=== PATIENT | female | born 1955 | race Caucasian/White ===

== ENCOUNTER 2016-08-08 14:31 | Observation (INO) | payer OTHER ==
[~2016-08-08] VITALS: Ht 167.6 cm; Wt 66.6 kg
[~2016-08-08 14:31] MED LIST: AMBIEN5 MG PO; BENADRYL25 MG PO; COLACE100 MG PO; DULCOLAX5 MG PO; DUONEB IN; EFFEXOR XR75 MG PO; FERR SULFATE325 MG PO; FLEXERIL PO; FLOVENT HFA44 MCG IN; HOME NEBULIZER; IMITREX50 M1 PO; LEXAPRO20 MG PO; LISINOPRIL20 MG PO; MEDDOSEPAK PO; MELOXICAM7.5 MG PO; ROBITUSSIN AC10 ML OR; TOPAMAX25 MG PO; TOPROL XL PO; TYLENOL 500MG TAB PO; ULTRAM50 M1 PO; VENTOLIN HFA IN; XANAX0.5 MG PO; ZITHROMAX250 MG PO; ZOCOR20 M1
[2016-08-08 15:14] LABS: HEMOGLOBIN 12.7 g/dl (12.0-16.0); IMMATURE GRANULOCYTES 0.5 % (0.0-1.0); MEAN CELL VOLUME 92.7 fL CALC (80.0-100.0); MEAN CORPUSCULAR HGB CONC 33.4 g/L CALC (32.0-36.0); NEUT# 5.87 thou/uL (2.00-7.15); RED BLOOD COUNT 4.1 mill/uL (4.20-5.60); RED CELL DISTRI WIDTH 12.3 % (11.5-15.5)
[2016-08-08 15:17] LABS: URINE BILIRUBIN - DIPSTICK NEGATIVE (NEGATIVE); URINE BLOOD DIPSTICK NEGATIVE (NEGATIVE); URINE CLARITY CLEAR; URINE COLOR YELLOW; URINE GLUCOSE - DIPSTICK NEGATIVE (NEGATIVE); URINE KETONE NEGATIVE (NEGATIVE); URINE LEUK ESTERASE NEGATIVE (NEGATIVE); URINE NITRITE - DIPSTICK NEGATIVE (Negative); URINE PROTEIN - DIPSTICK NEGATIVE (NEG-TRACE); URINE SPECIFIC GRAVITY <=1.005; URINE UROBILINOGEN - DIPSTICK 0.2 E.U./dL (0.2)
[2016-08-08 15:26] LABS: ALBUMIN 4.5 g/dL (3.2-5.0); ALKALINE PHOSPHATASE 92 u/l (38-126); AMYLASE 57 u/l (30-110); ANION GAP 16 (6-22 (CALC)); BILIRUBIN, TOTAL 0.3 mg/dL (0.0-1.4); BUN 12 mg/dL (7-17); BUN/CREATININE RATIO 14 (12-20 (CALC)); CALCIUM 9.4 mg/dL (8.4-10.2); CARBON DIOXIDE 23 mmol/l (22-30); CHLORIDE 102 mmol/l (95-108); CREATININE 0.8 mg/dL (0.5-1.0); GFR > 60 ML/MIN (>=60 (CALC)); GFR FOR AFR.AMER. > 60 ML/MIN (>=60 (CALC)); GLUCOSE 86 mg/dL (65-105); LIPASE 170 u/l (23-300); POTASSIUM 3.3 mmol/l (3.5-5.1); SGOT/AST 31 u/l (14-36); SGPT/ALT 42 u/l (9-52); SODIUM 138 mmol/l (137-146); TOTAL PROTEIN 7.6 g/dL (6.3-8.2)
[2016-08-08] MEDS ORDERED: PROZAC20 MG PO (15:41)
[2016-08-08 18:37] VITALS: BP 111/72
[2016-08-08 20:16] VITALS: BP 101/71
[2016-08-08 23:29] VITALS: BP 112/74
[2016-08-09] VITALS (9 sets, daily range): BP systolic 106–123; BP diastolic 61–78
[2016-08-09 07:32] LABS: HEMATOCRIT 35.4 % (37.0-47.0); HEMOGLOBIN 11.9 g/dl (12.0-16.0); IMMATURE GRANULOCYTES 0.4 % (0.0-1.0); MEAN CELL VOLUME 92.7 fL CALC (80.0-100.0); MEAN CORPUSCULAR HGB 31.2 pG CALC (26.0-32.0); MEAN CORPUSCULAR HGB CONC 33.6 g/L CALC (32.0-36.0); NEUT# 4.35 thou/uL (2.00-7.15); RED BLOOD COUNT 3.82 mill/uL (4.20-5.60); RED CELL DISTRI WIDTH 12.4 % (11.5-15.5)
[2016-08-09 08:25] LABS: ANION GAP 11 (6-22 (CALC)); BUN 11 mg/dL (7-17); BUN/CREATININE RATIO 14 (12-20 (CALC)); CALCIUM 9.1 mg/dL (8.4-10.2); CARBON DIOXIDE 23 mmol/l (22-30); CREATININE 0.8 mg/dL (0.5-1.0); GFR > 60 ML/MIN (>=60 (CALC)); GFR FOR AFR.AMER. > 60 ML/MIN (>=60 (CALC)); GLUCOSE 80 mg/dL (65-105); POTASSIUM 4.1 mmol/l (3.5-5.1); SODIUM 143 mmol/l (137-146)
[2016-08-09 08:26] LABS: CHLORIDE 113 mmol/l (95-108)
[2016-08-09] MEDS ORDERED: PERCOCET 5/325M1 TAB PO (13:38)
== END 2016-08-09 19:45 | disposition home or self-care (01) | DRG 340 ==
LOC: ENPENDDIS → ED 14:31 → ED-I 15:29 → ED 15:39 → MS2 15:40
PROVIDERS: Emergency Medicine; ADMIT Internal Medicine; ATTEND Internal Medicine
PROC: 0DTJ4ZZ Resection of Appendix, Percutaneous Endoscopic Approach (ICD-10-PCS; principal; 2016-08-09)
DX: K35.3 Acute appendicitis with localized peritonitis (principal); I10 Essential (primary) hypertension; E11.9 Type 2 diabetes mellitus without complications; J45.909 Unspecified asthma, uncomplicated; E66.9 Obesity, unspecified; K58.9 Irritable bowel syndrome, unspecified; F41.9 Anxiety disorder, unspecified; N83.209 Unspecified ovarian cyst, unspecified side; M19.90 Unspecified osteoarthritis, unspecified site; F31.9 Bipolar disorder, unspecified
CPT/HCPCS: G0378; Q9967; S0164

== ENCOUNTER 2016-08-20 11:36 | Emergency (ER) | payer OTHER ==
[~2016-08-20] VITALS: Ht 167.6 cm; Wt 68.0 kg
[~2016-08-20 11:36] MED LIST changes: +PERCOCET 5/325M1 TAB PO; +PROZAC20 MG PO
[2016-08-20] MEDS ORDERED: PROZAC10 MG PO (11:49)
[2016-08-20] MEDS ORDERED: LIPITOR20 MG PO (11:50)
[2016-08-20] MEDS ORDERED: TOPAMAX25 MG PO (11:51)
[2016-08-20 12:29] LABS: HEMATOCRIT 37.7 % (37.0-47.0); HEMOGLOBIN 12.9 g/dl (12.0-16.0); IMMATURE GRANULOCYTES 0.7 % (0.0-1.0); MEAN CELL VOLUME 90.4 fL CALC (80.0-100.0); MEAN CORPUSCULAR HGB 30.9 pG CALC (26.0-32.0); MEAN CORPUSCULAR HGB CONC 34.2 g/L CALC (32.0-36.0); NEUT# 4.25 thou/uL (2.00-7.15); RED BLOOD COUNT 4.17 mill/uL (4.20-5.60); RED CELL DISTRI WIDTH 12.5 % (11.5-15.5)
[2016-08-20 13:19] LABS: ALBUMIN 4.1 g/dL (3.2-5.0); ALKALINE PHOSPHATASE 95 u/l (38-126); ANION GAP 14 (6-22 (CALC)); BILIRUBIN, TOTAL 0.3 mg/dL (0.0-1.4); BUN 13 mg/dL (7-17); BUN/CREATININE RATIO 16 (12-20 (CALC)); CALCIUM 9.2 mg/dL (8.4-10.2); CARBON DIOXIDE 26 mmol/l (22-30); CHLORIDE 103 mmol/l (95-108); CREATININE 0.8 mg/dL (0.5-1.0); GFR > 60 ML/MIN (>=60 (CALC)); GFR FOR AFR.AMER. > 60 ML/MIN (>=60 (CALC)); GLUCOSE 71 mg/dL (65-105); POTASSIUM 3.3 mmol/l (3.5-5.1); SGOT/AST 59 u/l (14-36); SGPT/ALT 76 u/l (9-52); SODIUM 140 mmol/l (137-146)
[2016-08-20 14:09] LABS: URINE BILIRUBIN - DIPSTICK NEGATIVE (NEGATIVE); URINE BLOOD DIPSTICK NEGATIVE (NEGATIVE); URINE CLARITY CLEAR; URINE COLOR YELLOW; URINE GLUCOSE - DIPSTICK NEGATIVE (NEGATIVE); URINE KETONE NEGATIVE (NEGATIVE); URINE LEUK ESTERASE NEGATIVE (NEGATIVE); URINE NITRITE - DIPSTICK NEGATIVE (Negative); URINE PROTEIN - DIPSTICK NEGATIVE (NEG-TRACE); URINE SPECIFIC GRAVITY <=1.005; URINE UROBILINOGEN - DIPSTICK 0.2 E.U./dL (0.2)
[2016-08-20] MEDS ORDERED: LORTAB 10-325 M1 TAB PO (16:26)
[2016-08-20] MEDS ORDERED: ZOFRAN ODT4 MG PO (16:26)
[2016-08-20 16:27] VITALS: BP 112/70
== END 2016-08-20 16:35 | disposition home or self-care (01) | DRG 392 ==
LOC: ED 11:36
PROVIDERS: Emergency Medicine
DX: R10.33 Periumbilical pain (principal); R11.2 Nausea with vomiting, unspecified; R10.31 Right lower quadrant pain; N83.201 Unspecified ovarian cyst, right side; Z98.890 Other specified postprocedural states; R19.7 Diarrhea, unspecified
CPT/HCPCS: Q9967

== ENCOUNTER 2017-01-21 07:08 | Day surgery (SDC) | payer OTHER ==
[~2017-01-21] VITALS: Ht 167.6 cm; Wt 67.1 kg
[~2017-01-21 07:08] MED LIST changes: +ALLEGRA180 MG PO; +LIPITOR20 MG PO; +LORTAB 10-325 M1 TAB PO; +MELOXICAM15 MG PO; +METOPROLOL SUC100 MG PO; +NITROSTAT0.3 MG SL; +OMEPRAZOLE20 MG PO; +PROVENTIL HFA IN; +PROZAC10 MG PO; +TOPAMAX100 M1 PO; +WELLBUTRIN SR150 MG PO; +XANAX1 MG PO; +ZANAFLEX4 M2 PO; +ZOFRAN ODT4 MG PO
[2017-01-21 09:36] VITALS: BP 126/77
== END 2017-01-21 09:10 | disposition home or self-care (01) | DRG 392 ==
LOC: ENDO 07:08 → ORM 10:20
PROVIDERS: ATTEND Surgery
PROC: 0DJD8ZZ Inspection of Lower Intestinal Tract, Via Natural or Artificial Opening Endoscopic (ICD-10-PCS; principal; 2017-01-21)
DX: R10.31 Right lower quadrant pain (principal); K64.8 Other hemorrhoids; I10 Essential (primary) hypertension; E11.9 Type 2 diabetes mellitus without complications; F31.9 Bipolar disorder, unspecified; M54.12 Radiculopathy, cervical region; J45.909 Unspecified asthma, uncomplicated; K58.9 Irritable bowel syndrome, unspecified

== ENCOUNTER 2017-08-07 16:35 | Emergency (ER) | payer OTHER ==
[~2017-08-07] VITALS: Ht 167.6 cm; Wt 61.4 kg
[2017-08-07] MEDS ORDERED: WELLBUTRIN SR150 MG PO ×2 (16:59→17:00)
[2017-08-07] MEDS ORDERED: ADDERALL15 MG PO (17:00)
[2017-08-07] MEDS ORDERED: LISINOPRIL5 MG PO (17:02)
[2017-08-07] MEDS ORDERED: ZYRTEC10 MG PO (17:04)
[2017-08-07] MEDS ORDERED: PERCOCET 5/325M1 TAB PO (18:04)
[2017-08-07 18:21] VITALS: BP 169/88
== END 2017-08-07 18:33 | disposition home or self-care (01) | DRG 563 ==
LOC: ED 16:35
PROC: 2W3SX1Z Immobilization of Right Foot using Splint (ICD-10-PCS; principal; 2017-08-07)
DX: S92.511A Displaced fracture of proximal phalanx of right lesser toe(s), initial encounter for closed fracture (principal); W22.03XA Walked into furniture, initial encounter; Y92.009 Unspecified place in unspecified non-institutional (private) residence as the place of occurrence of the external cause

== ENCOUNTER 2017-09-14 11:54 | Emergency (ER) | payer OTHER ==
[~2017-09-14] VITALS: Ht 167.6 cm; Wt 60.0 kg
[~2017-09-14 11:54] MED LIST changes: +ADDERALL15 MG PO; +LISINOPRIL5 MG PO; +ZYRTEC10 MG PO
[2017-09-14] MEDS ORDERED: PROVENTIL108 MCG/AC IN (12:11)
[2017-09-14] MEDS ORDERED: TOPROL XL PO (12:12)
[2017-09-14] MEDS ORDERED: LISINOP/HCTZ1 TAB PO (12:12)
[2017-09-14] MEDS ORDERED: STIOLTO RESPIMA1 AER PO (12:14)
[2017-09-14] MEDS ORDERED: VENLAFAXINE HC150 MG PO (12:14)
[2017-09-14] MEDS ORDERED: SPIRIVA HANDIH18 MCG IN (12:14)
[2017-09-14] MEDS ORDERED: IMITREX100 MG PO (12:17)
[2017-09-14] MEDS ORDERED: TOPIRAMATE100 MG PO (12:18)
[2017-09-14] MEDS ORDERED: TOPAMAX50 MG PO (12:18)
[2017-09-14] MEDS ORDERED: AMPHETAMINE15 M1 PO (12:19)
[2017-09-14] MEDS ORDERED: FAMOTIDINE20 M1 PO (12:19)
[2017-09-14] MEDS ORDERED: TORADOL PO (13:05)
[2017-09-14 13:16] VITALS: BP 122/76
== END 2017-09-14 13:19 | disposition home or self-care (01) ==
LOC: ED 11:54
DX: S30.0XXA Contusion of lower back and pelvis, initial encounter (principal); I10 Essential (primary) hypertension; F32.9 Major depressive disorder, single episode, unspecified; J45.909 Unspecified asthma, uncomplicated; F41.9 Anxiety disorder, unspecified; W19.XXXA Unspecified fall, initial encounter; Y92.009 Unspecified place in unspecified non-institutional (private) residence as the place of occurrence of the external cause

== ENCOUNTER 2018-01-01 06:41 | Emergency (ER) | payer OTHER ==
[~2018-01-01] VITALS: Ht 167.6 cm; Wt 50.0 kg
[~2018-01-01 06:41] MED LIST changes: +AMPHETAMINE15 M1 PO; +FAMOTIDINE20 M1 PO; +IMITREX100 MG PO; +LISINOP/HCTZ1 TAB PO; +PROVENTIL108 MCG/AC IN; +SPIRIVA HANDIH18 MCG IN; +STIOLTO RESPIMA1 AER PO; +TOPAMAX50 MG PO; +TOPIRAMATE100 MG PO; +TORADOL PO; +VENLAFAXINE HC150 MG PO
[2018-01-01] MEDS ORDERED: NAPROSYN500 MG PO (07:50)
[2018-01-01 07:59] VITALS: BP 107/60
== END 2018-01-01 08:18 | disposition home or self-care (01) ==
LOC: ED 06:41
DX: S20.211A Contusion of right front wall of thorax, initial encounter (principal); W01.190A Fall on same level from slipping, tripping and stumbling with subsequent striking against furniture, initial encounter; Y92.009 Unspecified place in unspecified non-institutional (private) residence as the place of occurrence of the external cause

== ENCOUNTER 2018-04-26 17:08 | Emergency (ER) | payer OTHER ==
[~2018-04-26] VITALS: Ht 167.6 cm; Wt 60.9 kg
[~2018-04-26 17:08] MED LIST changes: +NAPROSYN500 MG PO
[2018-04-26 18:40] LABS: HEMATOCRIT 39.1 % (37.0-47.0); IMMATURE GRANULOCYTES 0.6 % (0.0-5.0); MEAN CELL VOLUME 87.3 fL CALC (80.0-100.0); MEAN CORPUSCULAR HGB CONC 33.2 g/L CALC (32.0-36.0); NEUT# 3.77 thou/uL (2.00-7.15); RED BLOOD COUNT 4.48 mill/uL (4.20-5.60); RED CELL DISTRI WIDTH 15.4 % (11.5-15.5)
[2018-04-26 18:54] LABS: ANION GAP 13 (6-22 (CALC)); BUN 18 mg/dL (8-23); BUN/CREATININE RATIO 18 (12-20 (CALC)); CARBON DIOXIDE 22 mmol/l (22-30); CHLORIDE 105 mmol/l (95-108); GFR 56 ML/MIN (>=60 (CALC)); GFR FOR AFR.AMER. > 60 ML/MIN (>=60 (CALC)); POTASSIUM 3.3 mmol/l (3.5-5.1); SODIUM 136 mmol/l (137-146)
[2018-04-26] MEDS ORDERED: PREDNISONE10 MG PO (20:57)
[2018-04-26] MEDS ORDERED: VALTREX1 GM PO (20:57)
[2018-04-26 21:11] VITALS: BP 101/60
== END 2018-04-26 21:11 | disposition home or self-care (01) ==
LOC: ED 17:08
PROVIDERS: Family Medicine
DX: G51.0 Bell's palsy (principal); I10 Essential (primary) hypertension; J45.909 Unspecified asthma, uncomplicated; F41.9 Anxiety disorder, unspecified; F32.9 Major depressive disorder, single episode, unspecified; H92.02 Otalgia, left ear
CPT/HCPCS: Q9967

== ENCOUNTER 2018-10-25 17:05 | Emergency (ER) | payer OTHER ==
[~2018-10-25] VITALS: Ht 167.6 cm; Wt 50.0 kg
[~2018-10-25 17:05] MED LIST changes: +PREDNISONE10 MG PO; +VALTREX1 GM PO
[2018-10-25 17:29] LABS: HEMATOCRIT 35.1 % (37.0-47.0); HEMOGLOBIN 11.2 g/dl (12.0-16.0); IMMATURE GRANULOCYTES 0.5 % (0.0-5.0); MEAN CORPUSCULAR HGB 29.8 pG CALC (26.0-32.0); MEAN CORPUSCULAR HGB CONC 31.9 g/L CALC (32.0-36.0); NEUT# 7.75 thou/uL (2.00-7.15); RED BLOOD COUNT 3.76 mill/uL (4.20-5.60); RED CELL DISTRI WIDTH 13.3 % (11.5-15.5)
[2018-10-25 17:30] LABS: MEAN CELL VOLUME 93.4 fL CALC (80.0-100.0)
[2018-10-25 17:44] LABS: ANION GAP 14 (6-22 (CALC)); BUN 20 mg/dL (8-23); BUN/CREATININE RATIO 18 (12-20 (CALC)); CARBON DIOXIDE 21 mmol/l (22-30); CHLORIDE 105 mmol/l (95-108); CREATININE 1.1 mg/dL (0.5-1.0); GFR 50 ML/MIN (>=60 (CALC)); GFR FOR AFR.AMER. > 60 ML/MIN (>=60 (CALC)); POTASSIUM 3.7 mmol/l (3.5-5.1); SODIUM 136 mmol/l (137-146)
[2018-10-25] MEDS ORDERED: ONDANSETRON4 MG PO (18:42)
[2018-10-25] MEDS ORDERED: NORCO1 TA1 PO (18:42)
[2018-10-25] MEDS ORDERED: EFFEXOR37.5 MG PO (19:38)
[2018-10-25] MEDS ORDERED: PROZAC20 MG PO (19:38)
[2018-10-25] MEDS ORDERED: LIPITOR40 M1 PO (19:39)
[2018-10-25] MEDS ORDERED: LISINOPRIL5 MG PO (19:39)
[2018-10-25] MEDS ORDERED: FLONASE AL50 MCG/ACT (19:41)
[2018-10-25 22:19] VITALS: BP 101/59
== END 2018-10-25 22:40 | disposition home or self-care (01) ==
LOC: ED 17:05
PROVIDERS: Family Medicine
DX: S82.022A Displaced longitudinal fracture of left patella, initial encounter for closed fracture (principal); I95.2 Hypotension due to drugs; T46.5X5A Adverse effect of other antihypertensive drugs, initial encounter; I10 Essential (primary) hypertension; W01.0XXA Fall on same level from slipping, tripping and stumbling without subsequent striking against object, initial encounter; Y92.009 Unspecified place in unspecified non-institutional (private) residence as the place of occurrence of the external cause

== ENCOUNTER 2019-02-05 14:45 | Emergency (ER) | payer OTHER ==
[~2019-02-05] VITALS: Ht 167.6 cm; Wt 59.5 kg
[~2019-02-05 14:45] MED LIST changes: +EFFEXOR37.5 MG PO; +FLONASE AL50 MCG/ACT; +LIPITOR40 M1 PO; +NORCO1 TA1 PO; +ONDANSETRON4 MG PO
[2019-02-05 15:51] LABS: HEMATOCRIT 36.8 % (37.0-47.0); HEMOGLOBIN 12.2 g/dl (12.0-16.0); IMMATURE GRANULOCYTES 0.3 % (0.0-5.0); MEAN CELL VOLUME 89.3 fL CALC (80.0-100.0); MEAN CORPUSCULAR HGB 29.6 pG CALC (26.0-32.0); MEAN CORPUSCULAR HGB CONC 33.2 g/L CALC (32.0-36.0); NEUT# 6.6 thou/uL (2.00-7.15); RED BLOOD COUNT 4.12 mill/uL (4.20-5.60)
[2019-02-05 16:04] LABS: ALBUMIN 4.1 g/dL (3.2-5.0); BILIRUBIN, TOTAL 0.2 mg/dL (0.0-1.4); CREATININE 1.9 mg/dL (0.5-1.0); TOTAL PROTEIN 7.1 g/dL (6.3-8.2)
[2019-02-05 16:05] LABS: POTASSIUM 2.7 mmol/l (3.5-5.1)
[2019-02-05] MEDS ORDERED: K-DUR/KLOR-CON20 MEQ PO (17:46)
[2019-02-05] MEDS ORDERED: ULTRAM50 MG PO (17:46)
[2019-02-05 18:30] VITALS: BP 108/60
== END 2019-02-05 18:30 | disposition home or self-care (01) ==
LOC: ED 14:45
DX: S01.81XA Laceration without foreign body of other part of head, initial encounter (principal); W01.119A Fall on same level from slipping, tripping and stumbling with subsequent striking against unspecified sharp object, initial encounter; Z91.81 History of falling; Y92.019 Unspecified place in single-family (private) house as the place of occurrence of the external cause; S16.1XXA Strain of muscle, fascia and tendon at neck level, initial encounter; E87.6 Hypokalemia; S82.092A Other fracture of left patella, initial encounter for closed fracture
CPT/HCPCS: L1830

== ENCOUNTER 2020-01-12 10:56 | Emergency (ER) | payer OTHER ==
[~2020-01-12] VITALS: Ht 167.6 cm; Wt 70.0 kg
[~2020-01-12 10:56] MED LIST changes: +K-DUR/KLOR-CON20 MEQ PO; +ULTRAM50 MG PO
[2020-01-12] MEDS ORDERED: PROZAC20 MG PO (11:20)
[2020-01-12] MEDS ORDERED: XANAX1 MG PO (11:25)
[2020-01-12 13:40] VITALS: BP 152/83
[2020-01-12] MEDS ORDERED: HYDROCO/APAP1 TA9 PO (15:51)
== END 2020-01-12 13:45 | disposition home or self-care (01) ==
LOC: ED 10:56
DX: S92.321A Displaced fracture of second metatarsal bone, right foot, initial encounter for closed fracture (principal); R07.81 Pleurodynia; I10 Essential (primary) hypertension; F41.9 Anxiety disorder, unspecified; F32.9 Major depressive disorder, single episode, unspecified; J45.909 Unspecified asthma, uncomplicated; W01.0XXA Fall on same level from slipping, tripping and stumbling without subsequent striking against object, initial encounter; Y93.89 Activity, other specified; Y92.009 Unspecified place in unspecified non-institutional (private) residence as the place of occurrence of the external cause

== ENCOUNTER 2020-03-13 18:07 | Emergency (ER) | payer OTHER ==
[~2020-03-13] VITALS: Ht 167.6 cm; Wt 80.0 kg
[~2020-03-13 18:07] MED LIST changes: +HYDROCO/APAP1 TA9 PO
[2020-03-13 20:34] VITALS: BP 145/85
== END 2020-03-13 20:35 | disposition home or self-care (01) ==
LOC: ED 18:07
DX: S20.219A Contusion of unspecified front wall of thorax, initial encounter (principal); S29.011A Strain of muscle and tendon of front wall of thorax, initial encounter; I10 Essential (primary) hypertension; J45.909 Unspecified asthma, uncomplicated; F41.9 Anxiety disorder, unspecified; F32.9 Major depressive disorder, single episode, unspecified; W22.8XXA Striking against or struck by other objects, initial encounter

== ENCOUNTER 2021-04-21 15:36 | Observation (INO) | payer OTHER ==
[~2021-04-21] VITALS: Ht 167.6 cm; Wt 70.0 kg
[~2021-04-21 15:36] MED LIST changes: +LIPITOR20 M1 PO; -LIPITOR40 M1 PO
--- NOTE | 2021-04-21 15:44 | NUR ---
PATIENT TO ROOM 15 VIA WHEELCHAIR
[2021-04-21 16:24] LABS: IMMATURE GRANULOCYTES 0.1 % (0.0-5.0); MEAN CORPUSCULAR HGB 17.8 pG CALC (26.0-32.0); MEAN CORPUSCULAR HGB CONC 26.5 g/dL CAL (32.0-36.0); NEUT# 4.93 thou/uL (2.00-7.15); RED BLOOD COUNT 3.82 mill/uL (4.20-5.60); RED CELL DISTRI WIDTH 20.1 % (11.5-15.5)
[2021-04-21 16:34] LABS: HEMATOCRIT 25.7 % (37.0-47.0); HEMOGLOBIN 6.8 g/dl (12.0-16.0); MEAN CELL VOLUME 67.3 fL CALC (80.0-100.0)
[2021-04-21 16:52] LABS: ALKALINE PHOSPHATASE 80 u/l (38-126); BILIRUBIN, TOTAL 0.2 mg/dL (0.0-1.4); BUN 16 mg/dL (8-23); BUN/CREATININE RATIO 15 (12-20 (CALC)); CHLORIDE 109 mmol/l (95-108); GFR 56 ML/MIN (>=60 (CALC)); GFR FOR AFR.AMER. > 60 ML/MIN (>=60 (CALC)); SGOT/AST 26 u/l (9-36); SODIUM 138 mmol/l (137-146); TOTAL PROTEIN 7.5 g/dL (6.3-8.2)
[2021-04-21 16:53] LABS: LIPASE 128 u/l (23-300)
[2021-04-21 16:56] LABS: ANION GAP 16 (6-22 (CALC)); CARBON DIOXIDE 17 mmol/l (22-30); POTASSIUM 3.8 mmol/l (3.5-5.1)
[2021-04-21 17:06] LABS: ACT PARTIAL THROMBO TIME 22.1 SECONDS (20.0-32.5)
--- NOTE | 2021-04-21 18:49 | NUR ---
Reassessment of patient completed. No distress noted.
--- NOTE | 2021-04-21 19:15 | NUR ---
TRANSITION OF CARE REPORT TO MAKSIM VILLALOBOS
[2021-04-21 19:40] VITALS: BP 122/78
[2021-04-21 19:58] VITALS: BP 124/82
--- NOTE | 2021-04-21 20:16 | NUR ---
REPORT CALLED TO BRAINNA ON MED SURG
--- NOTE | 2021-04-21 20:24 | NUR ---
RECIEVED REPORT FROM GRISELDA SCHAEFFER
--- NOTE | 2021-04-21 20:29 | NUR ---
PATIENT TRANSPORTED OFF UNIT VIA STRETCHER TO ADMIT.
[2021-04-21 20:30] VITALS: BP 161/90
--- NOTE | 2021-04-21 20:31 | NUR ---
PT ARRIVED TO [facility] ROOM 273 VIA STRETCHER. PT IS A/OX3. ASSESSMENT AND VITALS COMPLETED. BP 161/90, HR 80. REPSIRATIONS EVEN AND UNLABORED. LUNG SOUNDS ARE CLEAR. HEART RHYTHM NORMAL WITH TELE IN PLACE ([id number]). BOWEL SOUNDS ACTIVE, LBM 04/21/21. PULSES STRONG. SKIN INTACT. PT DENIES OF ANY PAINS. FIRST UNIT OF BLOOD TRANSFUSIONING AT THIS TIME. PT EDUCATED ON S/S OF TRANSFUSION REACTIONS. PT ORIENTED TO ROOM AND CALL SYSTEM. NKDA NOTED, ALLERGY BAND AND FALL RISK BAND APPLIED. ALL SAFTE[employer] PRECAUTIONS ARE IN PLACE WITH CALL LIGHT IN REACH. WILL CONTINUE TO MONITOR.
[2021-04-21 20:43] VITALS: BP 161/90
--- NOTE | 2021-04-21 22:12 | NUR ---
FIRST UNIT OF BLOOD COMPLETED. VSS. #22G RAC REMAINS PATENT. PT DENIES OF ANY S/S OF REACTIONS. SECOND UNIT TO BE ADMINISTERED. NEW TUBING STARTED.
[2021-04-21 22:48] VITALS: BP 140/84
--- NOTE | 2021-04-21 23:20 | NUR ---
SECOND UNIT OF BLOOD SPIKED BY GRISELDA MILLER. PT INFORMED OF S/S OF TRANSFUSION REACTION. PT VERBLAIZED UNDERSTANDING. #22R RAC REMAINS PATENT.
[2021-04-21 23:35] VITALS: BP 139/81
--- NOTE | 2021-04-21 23:36 | NUR ---
VITALS COMPLETED. BP 139/81, HR 82, O2 99. RESPIRATIONS REMAINS EVEN AND UNLABORED. TELE EMONITORING IN PLACE. #22G RAC REMAINS PATENT. BLOOD INFUSING WITH EASE. PT DENIES OF ANY S/S OF REACTION. PT RE-EDUACTED. PT DENIES OF ANY NEEDS. ALL SAF[employer] PRECAUTIONS ARE IN PLACE WITH JACQUI LIGHT IN REACH. WILL CONTINUE TO MONITOR
[2021-04-22 00:20] VITALS: BP 132/77
--- NOTE | 2021-04-22 00:36 | NUR ---
BP 132/77, HR 77, O2 98. PT RESTING IN SEMI FOWLERS POSITION. DENIES OF ANY COMPLAINTS
[2021-04-22 02:24] VITALS: BP 146/87
--- NOTE | 2021-04-22 02:24 | NUR ---
SECOND UNIT OF BLOOD COMPLETED. REPSIRATIONS EVEN AND UNLABORED. PT DENIES OF ANY COMPLAINTS. NO S/S OF REACTION. WILL CONTINUE TO MONITOR.
[2021-04-22 04:00] VITALS: BP 145/90
--- NOTE | 2021-04-22 04:14 | NUR ---
PT RESTING IN SEMI FOWLERS POSITION WATCHING TV. RESPIRATIONS ARE EVEN AND UNLABORED WITH NO DISTRESS NOTED. #22G RAC NOTED. TELE MONITORING IN PLACE. PT DENIES OF ANY NEEDS. ALL SAFTEY PRECAUTIONS ARE IN PLACE. WILL CONTINUE TO MONITOR
[2021-04-22 05:53] LABS: ANION GAP 13 (6-22 (CALC)); BUN 14 mg/dL (8-23); BUN/CREATININE RATIO 16 (12-20 (CALC)); CARBON DIOXIDE 17 mmol/l (22-30); CHLORIDE 113 mmol/l (95-108); CREATININE 0.9 mg/dL (0.5-1.0); GFR > 60 ML/MIN (>=60 (CALC)); GFR FOR AFR.AMER. > 60 ML/MIN (>=60 (CALC)); POTASSIUM 4.3 mmol/l (3.5-5.1); SODIUM 140 mmol/l (137-146)
[2021-04-22 05:56] LABS: HEMATOCRIT 31.3 % (37.0-47.0); MEAN CORPUSCULAR HGB 20.4 pG CALC (26.0-32.0); MEAN CORPUSCULAR HGB CONC 28.4 g/dL CAL (32.0-36.0); RED BLOOD COUNT 4.37 mill/uL (4.20-5.60)
[2021-04-22 06:04] LABS: HEMOGLOBIN 8.9 g/dl (12.0-16.0); MEAN CELL VOLUME 71.6 fL CALC (80.0-100.0)
[2021-04-22] MEDS ORDERED: BENZONATATE200 MG PO (07:15)
[2021-04-22] MEDS ORDERED: VENLAFAXINE HY225 MG PO (07:16)
[2021-04-22] MEDS ORDERED: TOPIRAMATE100 MG PO (07:16)
[2021-04-22] MEDS ORDERED: ADDERALL XR30 MG PO (07:16)
[2021-04-22] MEDS ORDERED: ELAVIL25 M1 PO (07:17)
[2021-04-22] MEDS ORDERED: DICLOFEN POT50 MG PO (07:17)
[2021-04-22] MEDS ORDERED: ZOLPIDEM5 M1 PO (07:18)
[2021-04-22] MEDS ORDERED: IMITREX25 MG PO (07:18)
[2021-04-22 08:24] VITALS: BP 146/88
--- NOTE | 2021-04-22 10:37 | NUR ---
IN TO SEE PT. AT THIS TIME. POC REVIEWED, WILL ANTICIPATE DISCHARGE. PT AGREES. WILL INTITIATE DISCHARGE PROCESS
[2021-04-22] MEDS ORDERED: PROTONIX40 M2 PO (10:39)
--- NOTE | 2021-04-22 11:10 | NUR ---
PT DISCHARGED AT THIS TIME IN STABLE CONDITION. AMBULATORY TO VEHICLE. BELONGINGS, AND DISCHARGE PAPERWORK PROVIDED
== END 2021-04-22 11:10 | disposition home or self-care (01) ==
LOC: ED 15:36 → ED-I 17:40 → MS2 18:03 → ED 18:03 → MS2 04-22 11:10
PROVIDERS: ADMIT Internal Medicine; ATTEND Internal Medicine
DX: D50.9 Iron deficiency anemia, unspecified (principal); I10 Essential (primary) hypertension; E11.9 Type 2 diabetes mellitus without complications; J45.909 Unspecified asthma, uncomplicated; F31.9 Bipolar disorder, unspecified; F41.9 Anxiety disorder, unspecified; M54.12 Radiculopathy, cervical region; Z20.822 Contact with and (suspected) exposure to COVID-19
CPT/HCPCS: G0378; J1756; P9016

== ENCOUNTER 2021-06-06 07:07 | Day surgery (SDC) | payer OTHER ==
[~2021-06-06] VITALS: Ht 167.6 cm; Wt 68.0 kg
[~2021-06-06 07:07] MED LIST changes: +ADDERALL XR30 MG PO; +ADVAIR DISK1 INH; +AMITRIPTYLINE H10 MG PO; +BENZONATATE200 MG PO; +CALCIUM500 M5 PO; +DICLOFEN POT50 MG PO; +EFFEXOR XR75 MG/CAP PO; +ELAVIL25 M1 PO; +IMITREX25 MG PO; +PROTONIX40 M2 PO; +VENLAFAXINE HY225 MG PO; +VITAMIN D31000 UNI1 PO; +ZOLPIDEM5 M1 PO
[2021-06-06 09:20] VITALS: BP 131/81
== END 2021-06-06 09:53 | disposition home or self-care (01) ==
LOC: ORM 07:07
PROVIDERS: ATTEND Surgery
DX: D50.9 Iron deficiency anemia, unspecified (principal); K64.8 Other hemorrhoids; K64.4 Residual hemorrhoidal skin tags; K29.80 Duodenitis without bleeding; K29.70 Gastritis, unspecified, without bleeding; K20.90 Esophagitis, unspecified without bleeding; I10 Essential (primary) hypertension